=== PATIENT | male | born 1995 | race African-American/Black ===

== ENCOUNTER 2016-11-02 15:18 | Emergency (ER) | payer SELFPAY ==
[~2016-11-02] VITALS: Ht 175.3 cm; Wt 62.3 kg
[2016-11-02 15:29] VITALS: BP 122/78
[2016-11-02] MEDS ORDERED: IBUPROFEN 200 MG TABLET ONE (16:09)
[2016-11-02] MEDS ORDERED: IBUPROFEN 200 MG TABLET PO ONE (16:30)
== END 2016-11-02 16:34 | disposition home or self-care (01) ==
LOC: ED 16:25
DX: S16.1XXA Strain of muscle, fascia and tendon at neck level, initial encounter (principal); V89.2XXA Person injured in unspecified motor-vehicle accident, traffic, initial encounter; Y93.89 Activity, other specified; Y99.8 Other external cause status; Y92.89 Other specified places as the place of occurrence of the external cause
CPT/HCPCS: 72050

== ENCOUNTER 2018-01-19 17:01 | Emergency (ER) | payer SELFPAY ==
[~2018-01-19] VITALS: Ht 175.3 cm; Wt 64.0 kg
[2018-01-19 17:13] VITALS: BP 119/75
[2018-01-19] MEDS ORDERED: CEFTRIAXONE 250 MG ONE (17:43)
[2018-01-19] MEDS ORDERED: AZITHROMYCIN 250 MG TABLET ONE (17:43)
[2018-01-19] MEDS ORDERED: metroNIDAZOLE 500 MG TABLET ONE (17:43)
[2018-01-19] MEDS ORDERED: CEFTRIAXONE 250 MG IM ONE (18:00)
[2018-01-19] MEDS ORDERED: metroNIDAZOLE 500 MG TABLET PO ONE (18:00)
[2018-01-19] MEDS ORDERED: AZITHROMYCIN 500 MG TABLET PO ONE (18:00)
[2018-01-19 18:06] LABS: CULTURE INDICATED? YES; MICROSCOPIC INDICATED
== END 2018-01-19 18:38 | disposition home or self-care (01) ==
LOC: ED 18:00
DX: A56.8 Sexually transmitted chlamydial infection of other sites (principal); A59.9 Trichomoniasis, unspecified; R82.99 Other abnormal findings in urine
CPT/HCPCS: 81001; 87086; 87491; 87591; 96372; 99284; J0696

== ENCOUNTER 2018-08-07 09:08 | Emergency (ER) | payer MEDICAID ==
[~2018-08-07] VITALS: Ht 175.3 cm; Wt 63.3 kg
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
[2018-08-07] MEDS ORDERED: IBUPROFEN 600 MG TABLET PO ONE (10:00)
[2018-08-07] MEDS ORDERED: FAMOTIDINE 20 MG TABLET PO ONE (10:00)
[2018-08-07] MEDS ORDERED: IBUPROFEN 600 MG TABLET ONE (10:17)
[2018-08-07] MEDS ORDERED: FAMOTIDINE 20 MG TABLET ONE (10:17)
[2018-08-07 10:32] LABS: MEAN CORPUSCULAR HEMOGLOBIN 31.7 pg (27.5-34.5); MEAN CORPUSCULAR VOLUME 93.4 fL (81-97); MEAN PLATELET VOLUME 8.2 fL (7.4-10.4); PLATELET COUNT 174 x10^3/uL (130-400); RED BLOOD COUNT 5.21 x10^6/uL (4.38-5.82); RED CELL DISTRIBUTION WIDTH 14.2 % (9.4-14.8)
[2018-08-07 10:35] LABS: ALANINE AMINOTRANSFERASE 20 U/L (12-78); ALBUMIN 3.9 g/dL (3.4-5.0); ANION GAP 3 mmol/L (5-15); CALCIUM 8.8 mg/dL (8.5-10.1); CHLORIDE 111 mmol/L (98-107)
[2018-08-07 10:38] LABS: ALKALINE PHOSPHATASE 97 U/L (45-117); CREATININE 1.21 mg/dL (0.7-1.3); TOTAL PROTEIN 7.2 g/dL (6.4-8.2)
[2018-08-07 10:56] LABS: BASOPHILS # (AUTO) 0.01 x10^3/uL (0-0.1); BASOPHILS % (AUTO) 0 % (0-1); EOSINOPHILS # (AUTO) 0.08 x10^3/uL (0-0.4); EOSINOPHILS % (AUTO) 2 % (1-7); LYMPHOCYTES % (AUTO) 15 % (22-44); MD SCAN; MONOCYTES # (AUTO) 0.26 x10^3/uL (0.2-0.8); MONOCYTES % (AUTO) 5 % (2-9); NEUTROPHILS # (AUTO) 4.05 x10^3/uL (1.8-6.8); NEUTROPHILS % (AUTO) 78 % (42-75)
[2018-08-07 11:23] VITALS: BP 123/78
--- NOTE | 2018-08-07 11:25 | NUR ---
patient discharge instructions reviewed. shows understanding. rest, ice, compression, elevation.
== END 2018-08-07 11:26 | disposition home or self-care (01) ==
LOC: ED 09:38
DX: S63.641A Sprain of metacarpophalangeal joint of right thumb, initial encounter (principal); S63.621A Sprain of interphalangeal joint of right thumb, initial encounter; R10.31 Right lower quadrant pain; F17.200 Nicotine dependence, unspecified, uncomplicated; X58.XXXA Exposure to other specified factors, initial encounter; Y93.89 Activity, other specified; Y92.098 Other place in other non-institutional residence as the place of occurrence of the external cause; Y99.8 Other external cause status
CPT/HCPCS: 29260; 36415; 80053; 83690; 85025; 99284

== ENCOUNTER 2019-05-27 13:07 | Emergency (ER) | payer MEDICAID ==
[~2019-05-27] VITALS: Ht 175.3 cm; Wt 63.9 kg
[2019-05-27 13:17] VITALS: BP 123/79
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
== END 2019-05-27 14:56 ==
LOC: ED 14:50
DX: S13.4XXA Sprain of ligaments of cervical spine, initial encounter (principal); S33.5XXA Sprain of ligaments of lumbar spine, initial encounter; S23.3XXA Sprain of ligaments of thoracic spine, initial encounter; V98.8XXA Other specified transport accidents, initial encounter; Y92.488 Other paved roadways as the place of occurrence of the external cause; Y93.89 Activity, other specified; Y99.8 Other external cause status
CPT/HCPCS: 72020; 72050; 72072; 72110; 99283

== ENCOUNTER 2019-06-12 08:38 | Emergency (ER) | payer MEDICAID ==
[~2019-06-12] VITALS: Ht 172.7 cm; Wt 63.1 kg
[2019-06-12 08:39] VITALS: BP 130/69
--- NOTE | 2019-06-12 08:43 | NUR ---
UA CUP GIVEN
--- NOTE | 2019-06-12 09:04 | NUR ---
URINE SAMPLE COLLECTED AND SENT. PT IN ROOM, CALL LIGHT IN REACH. DENIES ANY NEEDS OR CONCERNS.
[2019-06-12 09:36] LABS: MICROSCOPIC NOT IND
[2019-06-12 09:38] LABS: CULTURE INDICATED? NO
[2019-06-12] MEDS ORDERED: LIDOCAINE-MPF 1%, 2ML ONE (09:51)
[2019-06-12] MEDS ORDERED: CEFTRIAXONE 250 MG ONE (09:51)
[2019-06-12] MEDS ORDERED: AZITHROMYCIN 500 MG TABLET ONE (09:51)
[2019-06-12] MEDS ORDERED: AZITHROMYCIN 500 MG TABLET PO ONE (10:00)
[2019-06-12] MEDS ORDERED: CEFTRIAXONE 250 MG IM ONE (10:00)
== END 2019-06-12 10:20 | disposition home or self-care (01) ==
LOC: ED 10:14
DX: R30.0 Dysuria (principal); F17.200 Nicotine dependence, unspecified, uncomplicated; Z86.19 Personal history of other infectious and parasitic diseases
CPT/HCPCS: 81003; 96372; 99283; J0696

== ENCOUNTER 2019-11-07 13:44 | Emergency (ER) | payer MEDICAID, OTHER ==
[~2019-11-07] VITALS: Ht 177.8 cm; Wt 65.0 kg
--- NOTE | 2019-11-07 14:00 | NUR ---
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
[2019-11-07] MEDS ORDERED: KETOROLAC 30 MG/1 ML ONE (14:11)
[2019-11-07] MEDS ORDERED: DIAZEPAM 5 MG TABLET ONE (14:11)
--- NOTE | 2019-11-07 14:18 | NUR ---
PT MEDICATED PER ERP ORDER FOR 01/29 L SIDED NECK PAIN W/CERVICAL TENDERNESS RADIATING TO L SHOULDER. CCOLLAR PLACED IN TRIAGE. PULSE OX IN PLACE. CALL LIGHT WITHIN REACH. PT TO CT.
[2019-11-07] MEDS ORDERED: DIAZEPAM 5 MG TABLET PO ONE (14:30)
[2019-11-07] MEDS ORDERED: KETOROLAC 30 MG/1 ML IM ONE (14:30)
--- NOTE | 2019-11-07 15:48 | NUR ---
RESULTS BACK, PT FOR RECHECK.
[2019-11-07 16:07] VITALS: BP 116/70
== END 2019-11-07 16:10 | disposition home or self-care (01) ==
LOC: ED 14:30
DX: S16.1XXA Strain of muscle, fascia and tendon at neck level, initial encounter (principal); S29.019A Strain of muscle and tendon of unspecified wall of thorax, initial encounter; F17.200 Nicotine dependence, unspecified, uncomplicated; V49.49XA Driver injured in collision with other motor vehicles in traffic accident, initial encounter; Y93.89 Activity, other specified; Y92.481 Parking lot as the place of occurrence of the external cause; Y99.8 Other external cause status
CPT/HCPCS: 72072; 72125; 96372; 99284; J1885

== ENCOUNTER 2020-04-01 14:06 | Emergency (ER) | payer MEDICAID, OTHER ==
[~2020-04-01] VITALS: Ht 175.3 cm; Wt 60.7 kg
[2020-04-01 14:15] VITALS: BP 133/89
[2020-04-01] MEDS ORDERED: CEFTRIAXONE 250 MG IM ONE (14:30)
[2020-04-01] MEDS ORDERED: AZITHROMYCIN 500 MG TABLET PO ONE (14:30)
[2020-04-01] MEDS ORDERED: AZITHROMYCIN 500 MG TABLET ONE (15:16)
[2020-04-01] MEDS ORDERED: CEFTRIAXONE 250 MG ONE (15:17)
[2020-04-01] MEDS ORDERED: LIDOCAINE-MPF 1%, 2ML ONE (15:17)
--- NOTE | 2020-04-01 15:20 | NUR ---
URINE SAMPLE COLLECTED-SENT TO LAB
[2020-04-01 15:52] LABS: MICROSCOPIC NOT IND
== END 2020-04-01 16:04 | disposition home or self-care (01) ==
LOC: ED 15:30
DX: S50.12XA Contusion of left forearm, initial encounter (principal); N34.2 Other urethritis; M79.89 Other specified soft tissue disorders; F17.210 Nicotine dependence, cigarettes, uncomplicated; X58.XXXA Exposure to other specified factors, initial encounter; Y93.89 Activity, other specified; Y92.89 Other specified places as the place of occurrence of the external cause; Y99.8 Other external cause status
CPT/HCPCS: 29125; 73110; 81003; 87491; 87591; 96372; 99284; 99406; J0696